=== PATIENT | female | born 1945 | race Caucasian/White ===

== ENCOUNTER 2022-02-22 08:09 | Observation (INO) ==
--- NOTE | 2022-01-26 11:08 | PAT Medication Instructions ---
Medication Instructions Date of Service January 26, 2022 Home Medications calcium 600 mg capsule 600 mg PO QAM cholecalciferol (vitamin D3) 50 mcg (2,000 unit) tablet (Vitamin D3) 50 mcg PO QAM cyanocobalamin (vitamin B-12) 1,000 mcg tablet (Vitamin B-12) 1,000 mcg PO QAM glucosamine-chondroitin 250 mg-200 mg tablet (Osteo Bi-Flex) 2 tab PO QAM ibuprofen 200 mg tablet 200 mg PO QAM PRN levothyroxine 125 mcg tablet 125 mcg PO QAM lorazepam 0.5 mg tablet 0.5 mg PO HS PRN melatonin 5 mg tablet 5 mg PO HS polyethylene glycol 3350 17 gram/dose oral powder (Miralax) 17 g PO DAILY PRN ASK your surgeon for instructions ibuprofen 200 mg tablet 200 mg PO QAM PRN STOP taking 2 weeks before surgery glucosamine-chondroitin 250 mg-200 mg tablet (Osteo Bi-Flex) 2 tab PO QAM DO NOT take the morning of surgery calcium 600 mg capsule 600 mg PO QAM cholecalciferol (vitamin D3) 50 mcg (2,000 unit) tablet (Vitamin D3) 50 mcg PO QAM cyanocobalamin (vitamin B-12) 1,000 mcg tablet (Vitamin B-12) 1,000 mcg PO QAM polyethylene glycol 3350 17 gram/dose oral powder (Miralax) 17 g PO DAILY PRN Take morning of surgery With a small sip of water, OTHERWISE NOTHING TO EAT OR DRINK AFTER MIDNIGHT: levothyroxine 125 mcg tablet 125 mcg PO QAM Take evening before surgery lorazepam 0.5 mg tablet 0.5 mg PO HS PRN(if needed) melatonin 5 mg tablet 5 mg PO HS Other Notes If you have any questions please call us at [phone] or [phone] or [phone] or [phone]
--- NOTE | 2022-01-27 14:37 | Anesthesiology Consultation ---
Date of Service January 27, 2022 Assessment & Plan (1) Encounter for pre-operative examination: - COVID screening: Per assessment on 01/27/2022: Travel screen negative, no known COVID-19 positive contacts or current COVID-19 related symptoms in past 2 weeks. Patient vaccinated. Surgeon arranging preop COVID testing, scheduled 02/18/2022. Awaiting results. Chart Review Chart Review: Acceptable Risk for Surgery and Patient seen in Pre Admission Testing Teaching & Discussion Pre-Anesthesia Teaching/Discussion Notes: Instructed NPO after midnight before surgery, except medications with 15 cc of water. Medication instructions provided according to the PAT guidelines. History Surgery Operation Date: 02/22/22 07:00 Proposed Procedures p Right Total Knee Arthroplasty - Brian Maya, Height/Weight Height: 5 ft 6 in Weight: 66.2 kg Allergies Allergy/AdvReac Type Severity Reaction Status Date / Time No Known Allergies Allergy Unverified 01/25/22 08:18 Medications Home Medications Medication Instructions Recorded Confirmed Last Taken calcium 600 mg capsule 600 mg PO QAM 01/25/22 01/25/22 Unknown cholecalciferol (vitamin D3) 50 50 mcg PO QAM 01/25/22 01/25/22 Unknown mcg (2,000 unit) tablet (Vitamin D3) cyanocobalamin (vitamin B-12) 1,000 mcg PO QAM 01/25/22 01/25/22 Unknown 1,000 mcg tablet (Vitamin B-12) glucosamine-chondroitin 250 mg-200 2 tab PO QAM 01/25/22 01/25/22 Unknown mg tablet (Osteo Bi-Flex) ibuprofen 200 mg tablet 200 mg PO QAM PRN 01/25/22 01/25/22 Unknown levothyroxine 125 mcg tablet 125 mcg PO QAM 01/25/22 01/25/22 Unknown lorazepam 0.5 mg tablet 0.5 mg PO HS PRN 01/25/22 01/25/22 Unknown melatonin 5 mg tablet 5 mg PO HS 01/25/22 01/25/22 Unknown polyethylene glycol 3350 17 17 g PO DAILY PRN 01/25/22 01/25/22 Unknown gram/dose oral powder (Miralax) 3-in-1 Commode #1 ea 01/27/22 01/27/22 Unknown diclofenac sodium 1 % topical gel 2 g TOPICAL QID 01/27/22 01/27/22 Unknown Past Medical History Medical History (Updated 01/27/22 @ 15:04 by Daksha Schwartz PA-C) Cervical stenosis of spinal canal Hypothyroidism Leg ulcer, left hx -- ~2014. wears compression stockings daily. Osteoarthritis of knees, bilateral Presence of pessary Prolapse of bladder Patient denies h/o stroke, seizures, heart attack, heart failure, DM, HTN, blood clots or blood transfusions. Exercise / Class Metabolic Activity II 4-5 Yardwork/Stairs/Walk up hill (denies CP or SOB with 1 FOS) Past Family History Family History Other No family history of adverse response to anesthesia Past Surgical History Surgical History H/O tubal ligation History of colonoscopy History of esophagogastroduodenoscopy (EGD) S/p bilateral carpal tunnel release S/P cervical spinal fusion C3-C6 discectomy and fusion. Full ROM. (March 2016 Dr Packer [facility]) S/P sclerotherapy of varicose veins Past Anesthesia History No Hx of Anesthesia Complications and No Family Hx of Anesthesia Complications History of PONV No Hx of PONV and No Hx of Motion Sickness Social History Smoking Status: Never smoker Do You Dip or Chew Tobacco: No Hx Alcohol Use: No Hx Substance Use: No substance use type: does not use Review of Systems Patient denies chest pain, shortness of breath, dyspnea on exertion, snoring, witnessed apneas, reflux, fever, chills, cough, wheezing, or palpitations. Physical Exam Vital Signs Vitals BP 134/75 P 69 TEMP 98.3 SP02 99% on RA RESP 17 Physical Limited cervical extension range of motion without pain TMD 3.5 finger breaths Mallampati Score 3 Dentition: intact, bridge right upper side, two lower crowns sides bilat, two partials-upper and lower; denies chipped or loose teeth Lungs: normal respiratory effort. Clear throughout to auscultation, no adventitious breath sounds Cardiac: regular rate and rhythm, no murmurs noted Carotid arteries: negative bruit bilat Lab Results Anesthesia Preop Results Results Anesthesia Widget: WBC 6.23 K/uL (4.8-10.8) 05/11/22 Hgb 12.7 g/dL (12.0-16.0) 01/27/22 Hct 38.5 % (37-47) 01/27/22 Plt 289 K/uL (130-400) 01/27/22 Na 132 mmol/L (136-145) L 01/27/22 K 4.5 mmol/L (3.5-5.1) 01/27/22 Cl 99 mmol/L (98-107) 01/27/22 CO2 28 mmol/L (21-32) 01/27/22 BUN 15 mg/dl (6-23) 01/27/22 Creat 0.62 mg/dl (0.6-1.2) 01/27/22 Glucose Level 95 mg/dl (70-99(Fasting)) 01/27/22 PT 10.4 Seconds (9.0-12.0) 01/27/22 PTT 28.0 Seconds (21.0-31.0) 01/27/22 INR 1.0 (0.9-1.1) 01/27/22 Blood Type O Negative 01/27/22 Antibody Screen NEGATIVE 01/27/22 Testing Electrocardiogram Date: 07/13/21 NSR with sinus arrhythmia, rate 67 bpm Chest X-Ray Date: 01/27/22 The lungs are clear. Cardiac silhouette is normal in size. No pleural effusions. No pneumothorax. IMPRESSION: No acute process.
[~2022-02-22 08:09] MED LIST: ACETAMINOPHEN 500 MG TAB PO SCH; BUPIVACAINE 0.25% 30 ML VIAL ONE; BUPIVACAINE 0.5 % 5 MG/1 ML PF 10ML VIAL ONE; FAMOTIDINE 20 MG TAB PO SCH; GABAPENTIN 300 MG CAP PO SCH; Ketorolac (*for OR use only*) 30 MG, dexAMETHasone 4 MG, KETAMINE HCL (**OR use only) 1... INFIL SCH; LR 500ML BOLUS, THEN 15ML/HR IV SCH; LR 60ML/HR IV SCH; TRANEXAMIC ACID 1,000 MG **IV Intra-op IV SCH; TRANEXAMIC ACID 1,000 MG **IV Pre-op IV SCH; ceFAZolin 1000MG 1,000 MG/7.5 ML SYR IV SCH; dexAMETHasone 4 MG TAB PO SCH
--- NOTE | 2022-02-22 08:12 | History & Physical Bridge Note ---
Date of Service February 22, 2022 History & Physical Bridge Note I have examined the patient, reviewed the History & Physical and in the interval since the performance of the History & Physical I have noted the following changes of clinical significance: no changes noted
[2022-02-22] MEDS ORDERED: MIDAZOLAM HCL 1 MG/ML 2ML VIAL ONE (09:28)
[2022-02-22] MEDS ORDERED: ATROPINE SULFATE 0.1 MG/ML 10ML SYR IV PRN (09:53)
[2022-02-22] MEDS ORDERED: ePHEDrine sulfate 50 MG/ML AMP IV PRN (09:53)
[2022-02-22] MEDS ORDERED: fentaNYL citrate 100 MCG/2 ML VIAL IV PRN (09:53)
[2022-02-22] MEDS ORDERED: ONDANSETRON INJ 2 MG/ML 2 ML VIAL IV PRN ×2 (09:53→13:56)
[2022-02-22] MEDS ORDERED: ORTHO JOINT ANESTHETIC ONE (10:21)
[2022-02-22] MEDS ORDERED: PROPOFOL IV EMULSION 10 MG/ML 20 ML VIAL IV ONE (11:03)
[2022-02-22] MEDS ORDERED: ONDANSETRON INJ 2 MG/ML 2 ML VIAL ONE (11:03)
[2022-02-22] MEDS ORDERED: LIDOCAINE 2% 2 ML VIAL/AMP(20MG/ML) INFIL ONE (11:03)
[2022-02-22] MEDS ORDERED: DEXAMETHASONE SOD INJ 4 MG/ML VIAL ONE (11:03)
--- NOTE | 2022-02-22 11:59 | Operative Report ---
PG Post Operative Report Pre & Post Diagnosis Operation Date: 02/22/22 10:40 Pre-Op Diagnosis: Right Knee Osteoarthritis Post-Op Diagnosis: Right Knee Osteoarthritis I identified the patient and participated in the time-out.: Yes Procedure Operation Date: 02/22/22 10:40 Actual Procedures p Right Total Knee Arthroplasty, Cemented(Right) - Brian Maya DO Surgeon Brian Maya, Bankruptcy Judge Brian Switf PAC Estimated Blood Loss 20 Findings Consistent with Post-Op Diagnosis Specimens Right femoral and tibial bone Complications none Disposition Disposition: Recovery Room Indications Aishwarya is a pleasant 76-year-old female who is been dealing with chronic increasing right knee pain. X-rays and clinical examination were diagnostic for advanced arthritis of the right knee. After failing conservative treatment, she elected to proceed with a right total knee arthroplasty. Description of Procedure Implants used: I used a Joselyn Persona total knee arthroplasty system with a size 6 standard femur, E tibia, 31 oval patella, and a size 13 medial congruent polyethylene bearing. All components were cemented in place with Biomet cement. Aishwarya arrived [facility] for the above procedure. She was seen in the preoperative holding area and the operative extremity was identified and signed. She was given a preoperative antibiotic, TXA, a spinal anesthetic and an adductor nerve block. She was taken back to the operating room and laid on the table in supine position. She was given basic sedation. The operative knee was then prepped and draped in sterile fashion. A timeout was done, and the patient and the operative extremity was properly identified. A midline incision was made directly over the patella. Dissection was taken down to the extensor mechanism. A subvastus arthrotomy was used. The medial retinaculum was released and the fat pad was mostly excised. The knee was flexed and the ACL, PCL, and meniscus were removed. A drill was sent down the center of the femoral canal followed by an intramedullary mindy. Off that mindy a distal femoral cutting block was placed. 9 mm was resected off the distal femur at 5 of valgus. A posterior referencing AP sizing guide was then placed on the distal femur. The femur measured to be a size 6. 2 drill holes were placed in 3 of external rotation. A 4-in-1 cutting block was then impacted into place. Anterior, posterior, and chamfer cuts were then made. The proximal tibia was then exposed. An external tibial alignment guide was placed. A tibial cut guide was then anchored in place and the proximal tibia was then resected. The posterior aspect of the knee was then opened up and any additional meniscus fragments and osteophytes were removed. The tibia measured to be a size E. The tibial plate was then placed in the appropriate rotation and the tibia was drilled and punched. Trial components were then placed. I used a size 13 medial congruent polyethylene insert. The knee was brought through a full range of motion and felt to be stable. The peg holes for the femoral component were then drilled. The patella was then everted and 9 mm was resected off the posterior aspect of the patella. The patella measured to be a size 31 oval. 3 peg holes were then drilled. A trial patella was placed. The knee was once again brought through a full range of motion and felt to be stable. Trial components were then removed. The surrounding soft tissues were injected with 100 cc of an orthopedic pain control cocktail. All components were then cemented into place with Biomet cement. The final polyethylene insert was then snapped into place. Once cement was dry the tourniquet was deflated. Hemostasis was obtained. A dilute betadyne lavage was then done for 3 minutes. The joint was then irrigated with normal saline solution. The subvastus arthrotomy was then closed with #1 Vicryl suture. The skin was closed with 2-0 Vicryl, 3-0V lock suture, and yasmine. A soft compressive dressing was placed. She was then transferred to a hospital bed and taken to the postanesthesia care unit in stable condition. She tolerated the procedure well. Brian Swift PA-C, was present for the entire procedure. He was critical for patient positioning, prepping, draping, retraction exposure, wound closure and application of sterile dressing. I attest to the content of the Intraoperative Record and any orders documented therein. Any exceptions are noted below.
--- NOTE | 2022-02-22 12:47 | XRay Report ---
XR knee RT 1 or 2V routine HISTORY: 76 years-old Female Surgical Post Op right knee total joint arthroplasty COMPARISON: Knee radiographs 03/18/2021 TECHNIQUE: 2 views of the right knee FINDINGS: Right knee total joint arthroplasty with patellar resurfacing. Anterior midline skin yasmine are note d along with expected postoperative soft tissue swelling and deep tissue air. No acute fracture or un expected opaque foreign body. IMPRESSION: Right knee total joint arthroplasty with expected postoperative changes. ACT 112: Negative or not required by law. The above report was generated using voice recognition software. It may contain grammatical, syntax o r spelling errors. Electronically signed by: Arnaud Gee M.D. 02/22/2022 12:46 PM
[2022-02-22] MEDS ORDERED: bisacodyL 10 MG SUPP PR PRN (13:56)
[2022-02-22] MEDS ORDERED: METOCLOPRAMIDE HCL INJ 5 MG/ML 2 ML VIAL IV PRN (13:56)
[2022-02-22] MEDS ORDERED: SODIUM CHLORIDE 0.9% 1000ML 1,000 ML IV SCH (13:56)
[2022-02-22] MEDS ORDERED: HYDROmorphone INJ 0.5 MG/0.5 ML SYR IV PRN (13:56)
[2022-02-22] MEDS ORDERED: NALOXONE HCL 0.4 MG/1 ML VIAL/CARP IV PRN (13:56)
[2022-02-22] MEDS ORDERED: MAGNESIUM HYDROXIDE SUSP 30 ML UDC PO PRN (13:56)
[2022-02-22] MEDS ORDERED: LORazepam 0.5 MG TAB PO PRN (13:56)
[2022-02-22] MEDS: DICLOFENAC SOD 1% GEL 100 GM TUBE EXT SCH ×3 (14:44→20:59)
[2022-02-22] MEDS: ACETAMINOPHEN 500 MG TAB PO SCH ×2 (14:46→20:59)
--- NOTE | 2022-02-22 15:00 | Anesthesiology Progress Note ---
Date of Service February 22, 2022 Anesthesia Post Procedure Vital Signs Vital Signs: Temp Pulse Pulse Resp BP Pulse Ox 02/22/22 14:50 76 16 139/77 97 02/22/22 14:20 76 16 131/76 100 02/22/22 13:50 36.5 C 62 16 117/63 100 02/22/22 13:30 59 L 15 123/66 98 02/22/22 13:20 36.6 C 62 14 128/58 L 97 02/22/22 13:10 60 14 138/59 L 100 02/22/22 13:00 53 L 12 116/66 100 02/22/22 12:50 60 13 123/64 99 02/22/22 12:40 59 L 11 L 136/65 100 02/22/22 12:30 64 14 132/70 97 02/22/22 12:20 70 11 L 127/68 97 02/22/22 12:10 65 17 132/59 L 100 02/22/22 12:04 36.4 C L 64 16 105/56 L 97 02/22/22 08:38 36.4 C L 65 18 178/81 H 98 Transfer of Care Handoff Completed per policy Notes Mental Status: alert / awake / arousable and participated in evaluation Patient Amnestic to Procedure: Yes Nausea / Vomiting: adequately controlled Pain: adequately controlled Airway Patency, RR, SpO2: stable & adequate BP & HR: stable & adequate Hydration State: stable & adequate Neuraxial Anesthesia: was administered and sensory block is resolving Anesthetic Complications: no major complications apparent and Pt Satisfied with anesthetic care
[2022-02-22] MEDS: KETOROLAC TROMETHAMINE 15 MG/ML VIAL IV SCH ×2 (16:41→21:00)
[2022-02-22] MEDS: ceFAZolin 2000MG 2,000 MG/15 ML SYR IV SCH (17:35)
[2022-02-22] MEDS: oxyCODONE HCL IR 5 MG TAB (IMMEDIATE RELEASE) PO PRN ×3 (18:18→23:19)
[2022-02-22] MEDS: DOCUSATE SODIUM 100 MG CAP PO SCH (20:59)
[2022-02-22] MEDS: SENNA 8.6 MG TAB PO SCH (20:59)
[2022-02-22] MEDS: ASPIRIN 81 MG ECTAB PO SCH (20:59)
[2022-02-22] MEDS: MELATONIN 3 MG TAB PO SCH (23:19)
[2022-02-23] MEDS: ceFAZolin 2000MG 2,000 MG/15 ML SYR IV SCH (02:23)
[2022-02-23] MEDS: KETOROLAC TROMETHAMINE 15 MG/ML VIAL IV SCH ×4 (02:23→20:05)
[2022-02-23] MEDS: ACETAMINOPHEN 500 MG TAB PO SCH ×3 (06:37→22:18)
--- NOTE | 2022-02-23 07:02 | Orthopedic Progress Note ---
Date of Service February 23, 2022 Assessment & Plan (1) Status post right knee replacement: Overall she is doing very well. She is not any much pain in the right knee. She will be seen by physical therapy today for ambulation and range of motion exercises. She is on aspirin for DVT prophylaxis. She can be discharged home later today. She will follow-up with orthopedics in 2 weeks. Bernarda Neff was seen and examined at bedside this morning. Overall she is doing very well. She is not in too much pain in the right knee. She has been up and ambulating to the bathroom. She did have a small episode last night where she felt a little bit dizzy. Otherwise, she has no complaints. Review of Systems All systems reviewed & are unremarkable except as noted in HPI & below. Physical Exam On physical examination of the right knee, the dressing is clean and dry. Her leg is out full extension. She has active dorsiflexion plantarflexion of her right ankle.. Results & Data Results & Data Laboratory Results . Diagnostic Findings Postoperative x-rays of the right knee show the prosthesis to be in anatomic alignment without any evidence of fracture, desiccation, or loosening. PG Care Time/CCT Total # of Minutes Spent Total Time Spent with Patient: Total time spent is greater than 50% in coordination of care (as documented) at patient's floor/unit and/or counseling patient: Coding Level of Care Code 40164 Post Operative Follow-Up Diagnoses Status post right knee replacement Z96.651
--- NOTE | 2022-02-23 07:03 | Discharge Summary ---
Date of Service February 23, 2022 Principal Diagnosis Same as "Discharge Diagnosis" noted below under Discharge Instructions. Discharge Exam On physical examination of the right knee, the dressing is clean and dry. Her leg is out full extension. She has active dorsiflexion plantarflexion of her right ankle.. Discharge Data Procedures Performed Operation Date: 02/22/22 10:40 Actual Procedures p Right Total Knee Arthroplasty, Cemented(Right) - Brian Maya DO Ordered Studies 02/22/22 05:00 US - OR guided needle placemen Routine Hospital Course (1) Status post right knee replacement: On February 22, 2022 Aishwarya arrived at [facility] and underwent a right knee replacement without complication. She had a spinal anesthetic and a right interscalene nerve block. Postoperatively she was started on aspirin for DVT prophylaxis and transferred to the general orthopedic floors. Her hospital course was uneventful. On postop day #1, her vital signs were stable and her pain was well controlled. She was able to participate well with physical therapy doing ambulation and range of motion exercises. She was then discharged home. She will follow-up with orthopedics in 2 weeks. PG Care Time/CCT Total # of Minutes Spent Total Time Spent with Patient: Total time spent is greater than 50% in coordination of care (as documented) at patient's floor/unit and/or counseling patient: Discharge Plan Discharge Items Patient Disposition: Home - Home Health Services Reason For Visit: DJD Knee Right Discharge Diagnosis: Right knee replacement Activity: As commented below Non-emergency contact: Surgeon Call non-emergency contact if: your wound has increased redness and your wound has increased drainage Follow-up/Referrals: Alayna Geiger DO [Primary Care Provider] - Diet: Regular Addtl Attending Provider Instructions: Activity and Therapy Recommendations: * If you are using [facility] then therapy will be provided at your home until they feel you have accomplished all of your goals. * If you are using [facility] then Physical Therapy will be provided until they feel you are ready to start Outpatient Physical Therapy. * If you are not using home therapy then Outpatient Physical Therapy should start about 3-5 days from your day of surgery. Therapy will last about 6-10 weeks * It is important not to put a pillow under your knee when you are relaxing or sleeping. It is just as important to make sure you are getting your knee perfectly straight as it is to regain your knee bend. * You were shown a series of exercises in the hospital. Do these exercises three times each day including the exercises you were shown in physical therapy. * Get up and walk several times each day. For the first four weeks, try not to stand or walk for more than one hour at a time. If you do stand or walk for more than one hour, you will not hurt anything, but your leg will likely swell. * As you feel comfortable, you may change from the walker or crutches to a cane and then to independent walking. Medications: * Narcotic You will likely be sent home from the hospital with a prescription for the narcotic pain medication that worked best throughout your stay. * Aspirin Most patients will be required to take Aspirin 81mg twice a day for 6 weeks after surgery. This is obtained [id number] and a prescription is not necessary. * Other medications may be prescribed for specific circumstances. If you have any questions, please call the office at . * Resume previous home medications unless otherwise instructed TEDs/Elastic Stockings: The white elastic stockings help limit swelling and prevent blood clots from forming in your legs.~ The more you wear them, the more they work. Wear them for six weeks. Dressing Care: The dressing can be changed after physical therapy on postop day #1. Daily dry dressing changes for a few days, especially if the incision is still draining some. If the incision is not draining then you may leave the yasmine open to air. If there is a little bit of drainage or if the yasmine are getting stuck on your clothing then cover the incision with a dry dressing. The yasmine will be removed at your 2 week follow-up appointment. Showering: You may shower 5 days from the day of surgery as long as the incision is no longer draining. You may shower with the yasmine exposed. Let soapy water run over the yasmine and pat them dry. Do not scrub or soak the incision. Things To Watch For: * Drainage from the incision site that occurs more than one week after your surgery. * Increased redness at the incision site. * Fever above 102 degrees Fahrenheit. * Unusual chest pain or shortness of breath. * Call [facility] at with any of the above problems Follow-Up Visit: Follow-up with Dr. Maya's PA (Brian Swift) 2-3 weeks after your day of surgery. He will remove your yasmine and answer any questions. If you have any additional questions or concerns, Dr Maya is usually in the office at the same time and will be available An appointment was probably scheduled when you signed-up for surgery in the office. If you have any questions call Office Instructions: More detailed instructions as well as Frequently Asked Questions were provided in a folder by our office when you signed-up for surgery. Please review these instructions when you get home. If you have any further questions or concerns, please feel free to call the office at [phone] Pending Studies at Discharge: No Stand-Alone Forms: [facility] Medications and DC Order Prescriptions: New oxycodone-acetaminophen 5-325 mg tablet 1 tab PO Q6H PRN (Reason: pain) Qty: 30 RF: 0 aspirin 81 mg Tablet,Delayed Release (Dr/Ec) 81 mg PO BID 42 Days Qty: 84 RF: 0 Continued diclofenac sodium 1 % gel 2 g topical QID RF: 0 (DME) 3-in-1 Commode Misc See Rx Instructions .MEDSUPPLY Qty: 1 RF: 0 calcium 600 mg Capsule 600 mg PO QAM RF: 0 cyanocobalamin (vitamin B-12) [Vitamin B-12] 1,000 mcg Tablet 1,000 mcg PO QAM RF: 0 lorazepam 0.5 mg Tablet 0.5 mg PO HS PRN (Reason: Anxiety) RF: 0 levothyroxine 125 mcg Tablet 125 mcg PO QAM RF: 0 ibuprofen 200 mg Tablet 200 mg PO QAM PRN (Reason: Pain) RF: 0 polyethylene glycol 3350 [Miralax] 17 gram/dose Powder 17 g PO DAILY PRN (Reason: Constipation) RF: 0 glucosamine-chondroitin [Osteo Bi-Flex] 250-200 mg Tablet 2 tab PO QAM RF: 0 cholecalciferol (vitamin D3) [Vitamin D3] 50 mcg (2,000 unit) Tablet 50 mcg PO QAM RF: 0 melatonin 5 mg Tablet 5 mg PO HS RF: 0 Discharge Orders: Discharge Order (Routine); Ordered 02/23/22 Ordered By: Brian Maya Admission Data Admit Date/Time: 02/22/22 12:05 Attending Provider: Brian Maya Admit Provider: Brian Maya Primary Care Provider: Alayna Geiger
[2022-02-23] MEDS: LEVOTHYROXINE SODIUM 125 MCG TABLET PO SCH (07:36)
[2022-02-23] MEDS ORDERED: dexAMETHasone 4 MG TAB PO SCH (08:00)
[2022-02-23] MEDS: oxyCODONE HCL IR 5 MG TAB (IMMEDIATE RELEASE) PO PRN (08:29)
[2022-02-23] MEDS: DOCUSATE SODIUM 100 MG CAP PO SCH ×2 (08:30→20:06)
[2022-02-23] MEDS: DICLOFENAC SOD 1% GEL 100 GM TUBE EXT SCH ×4 (08:31→20:06)
[2022-02-23] MEDS: MULTIVITAMIN TAB PO SCH (08:31)
[2022-02-23] MEDS: ASPIRIN 81 MG ECTAB PO SCH ×2 (08:31→20:05)
[2022-02-23] MEDS: SENNA 8.6 MG TAB PO SCH (20:06)
[2022-02-23] MEDS: MELATONIN 3 MG TAB PO SCH (22:18)
[2022-02-24] MEDS: KETOROLAC TROMETHAMINE 15 MG/ML VIAL IV SCH ×2 (02:45→07:39)
[2022-02-24] MEDS: ACETAMINOPHEN 500 MG TAB PO SCH (05:35)
[2022-02-24] MEDS: LEVOTHYROXINE SODIUM 125 MCG TABLET PO SCH (05:35)
--- NOTE | 2022-02-24 06:23 | Orthopedic Progress Note ---
Date of Service February 24, 2022 Assessment & Plan (1) Status post right knee replacement: Overall she is doing much better. She is not having much pain in the right knee. She will be seen by physical therapy again today for ambulation and range of motion exercises. We will discontinue her narcotics. She feels safe going home with just taking ibuprofen and Tylenol. She can be discharged home later today. She will follow with orthopedics in 2 weeks. Bernarda Neff was seen and examined at bedside this morning. Overall she is feeling better today. She feels it was with her narcotic pain medications that were causing her to be dizzy. She is not having much pain in the knee. She was a little dizzy when she was up with therapy yesterday. She feels much better today. Review of Systems All systems reviewed & are unremarkable except as noted in HPI & below. Physical Exam On physical examination of the right knee, the dressing is clean and dry. Her leg is out full extension. She has active dorsiflexion plantarflexion of the right ankle.. Results & Data Results & Data Laboratory Results . Diagnostic Findings . PG Care Time/CCT Total # of Minutes Spent Total Time Spent with Patient: Total time spent is greater than 50% in coordination of care (as documented) at patient's floor/unit and/or counseling patient: Coding Level of Care Code 62438 Post Operative Follow-Up Diagnoses Status post right knee replacement Z96.651
[2022-02-24] MEDS: MULTIVITAMIN TAB PO SCH (07:38)
[2022-02-24] MEDS: DOCUSATE SODIUM 100 MG CAP PO SCH (07:38)
[2022-02-24] MEDS: DICLOFENAC SOD 1% GEL 100 GM TUBE EXT SCH (07:39)
[2022-02-24] MEDS: ASPIRIN 81 MG ECTAB PO SCH (07:39)
== END 2022-02-24 13:45 | disposition home health service (06) ==
LOC: ASU 08:09 → 3E 08:09

== ENCOUNTER 2022-06-11 07:39 | Observation (INO) ==
--- NOTE | 2022-06-03 10:06 | Anesthesiology Consultation ---
Date of Service June 03, 2022 Assessment & Plan (1) Encounter for pre-operative examination: - s/p R TKA 02/22/22: SAB at L4-L5 + PNB. - COVID screening: Per reel slitter on 06/03/2022: Travel screen negative, no known COVID-19 positive contacts or current COVID-19 related symptoms in past 2 weeks. Pt vaccinated. To surgeon's discretion if preop COVID testing needed. Chart Review Chart Review: Acceptable Risk for Surgery and Patient NOT seen in Pre Admission Testing History Surgery Operation Date: 06/11/22 10:25 Proposed Procedures p Left Total Knee Arthroplasty - Brian Maya, DO Height/Weight Height: 5 ft 5 in Weight: 63.957 kg Allergies Allergy/AdvReac Type Severity Reaction Status Date / Time No Known Allergies Allergy Verified 06/03/22 08:25 Medications Home Medications Medication Instructions Recorded Confirmed Last Taken calcium 600 mg capsule 600 mg PO QAM 01/25/22 06/03/22 02/21/22 07:00 cholecalciferol (vitamin D3) 50 50 mcg PO QAM 01/25/22 06/03/22 02/21/22 07:00 mcg (2,000 unit) tablet (Vitamin D3) cyanocobalamin (vitamin B-12) 1,000 mcg PO QAM 01/25/22 06/03/22 02/21/22 07:00 1,000 mcg tablet (Vitamin B-12) glucosamine-chondroitin 250 mg-200 2 tab PO QAM 01/25/22 06/03/22 02/15/22 07:00 mg tablet (Osteo Bi-Flex) ibuprofen 200 mg tablet 200 mg PO QAM PRN Pain 01/25/22 06/03/22 02/15/22 07:00 levothyroxine 125 mcg tablet 125 mcg PO QAM 01/25/22 06/03/22 02/22/22 06:00 lorazepam 0.5 mg tablet 0.5 mg PO HS PRN Anxiety 01/25/22 06/03/22 02/21/22 23:00 melatonin 5 mg tablet 5 mg PO HS 01/25/22 06/03/22 02/21/22 23:00 polyethylene glycol 3350 17 17 g PO DAILY PRN Constipation 01/25/22 06/03/22 02/20/22 23:00 gram/dose oral powder (Miralax) 3-in-1 Commode #1 ea 01/27/22 02/22/22 Unknown diclofenac sodium 1 % topical gel 2 g topical QID 01/27/22 06/03/22 02/21/22 07:00 tramadol 50 mg tablet 50 mg PO Q6H PRN pain #30 tabs 03/19/22 06/03/22 Unknown Past Medical History Medical History Cervical stenosis of spinal canal Hypothyroidism Leg ulcer, left hx -- ~2014. wears compression stockings daily. Presence of pessary Prolapse of bladder Past Family History Family History (Updated 06/03/22 @ 08:30 by Viky Gaona RN) Other No significant family history Past Surgical History Surgical History (Updated 06/03/22 @ 10:02 by Daksha Schwartz PA-C) Family history of reaction to anesthesia SISTER>HEART PALPITATION WITH ANESTHESIA H/O tubal ligation History of colonoscopy History of esophagogastroduodenoscopy (EGD) History of tooth extraction History of total knee replacement RT 02/22/22: SAB at L4-L5 + PNB. S/p bilateral carpal tunnel release S/P cervical spinal fusion C3-C6 discectomy and fusion. Full ROM. (March 2016 Dr Packer [facility]) S/P sclerotherapy of varicose veins Social History Smoking Status: Never smoker Hx Alcohol Use: No substance use type: does not use Lab Results Anesthesia Preop Results Results Anesthesia Widget: WBC 6.78 K/ul (4.8-10.8) 05/25/22 Hgb 12.1 g/dl (12.0-16.0) 05/25/22 Hct 37.9 % (34.1-44.9) 05/25/22 Plt 293 K/uL (130-400) 05/25/22 Na 131 mmol/L (136-145) L 05/25/22 K 4.4 mmol/L (3.5-5.1) 05/25/22 Cl 98 mmol/L (98-107) 05/25/22 CO2 28 mmol/L (21-32) 05/25/22 BUN 14 mg/dl (6-23) 05/25/22 Creat 0.57 mg/dl (0.6-1.2) L 05/25/22 Glucose Level 88 mg/dl (70-99(Fasting)) 05/25/22 PT 10.5 Seconds (9.0-12.0) 05/25/22 PTT 30.8 Seconds (21.0-31.0) 05/25/22 INR 1.0 (0.9-1.1) 05/25/22 Blood Type O Negative 05/25/22 Antibody Screen NEGATIVE 05/25/22 Testing Electrocardiogram Date: 07/13/21 NSR with sinus arrhythmia, rate 67 bpm Chest X-Ray Date: 01/27/22 The lungs are clear. Cardiac silhouette is normal in size. No pleural effusions. No pneumothorax. IMPRESSION: No acute process.
[~2022-06-11 07:39] MED LIST changes: -BUPIVACAINE 0.25% 30 ML VIAL ONE; -GABAPENTIN 300 MG CAP PO SCH; -Ketorolac (*for OR use only*) 30 MG, dexAMETHasone 4 MG, KETAMINE HCL (**OR use only) 1... INFIL SCH; +ORTHO JOINT MIX INFIL SCH; +ROPIVACAINE 0.5% 5 MG/ML 30 ML VIAL ONE
[2022-06-11] MEDS ORDERED: MIDAZOLAM HCL 1 MG/ML 2ML VIAL ONE (08:21)
[2022-06-11] MEDS: GABAPENTIN 300 MG CAP PO SCH ×2 (08:39→08:46)
--- NOTE | 2022-06-11 09:25 | History & Physical Bridge Note ---
Date of Service June 11, 2022 History & Physical Bridge Note I have examined the patient, reviewed the History & Physical and in the interval since the performance of the History & Physical I have noted the following changes of clinical significance: no changes noted
[2022-06-11] MEDS ORDERED: ePHEDrine sulfate 50 MG/ML AMP IV PRN (09:49)
[2022-06-11] MEDS ORDERED: ONDANSETRON INJ 2 MG/ML 2 ML VIAL IV PRN ×2 (09:49→13:44)
[2022-06-11] MEDS ORDERED: fentaNYL citrate 100 MCG/2 ML VIAL IV PRN (09:49)
[2022-06-11] MEDS ORDERED: ATROPINE SULFATE 0.1 MG/ML 10ML SYR IV PRN (09:49)
[2022-06-11] MEDS ORDERED: ORTHO JOINT ANESTHETIC ONE (09:57)
[2022-06-11] MEDS ORDERED: PROPOFOL IV EMULSION 10 MG/ML 20 ML VIAL IV ONE (10:33)
[2022-06-11] MEDS ORDERED: LIDOCAINE 2% MPF LOCAL 5 ML VIAL INFIL ONE (10:33)
[2022-06-11] MEDS ORDERED: ONDANSETRON INJ 2 MG/ML 2 ML VIAL ONE (10:33)
--- NOTE | 2022-06-11 11:35 | Operative Report ---
PG Post Operative Report Pre & Post Diagnosis Operation Date: 06/11/22 10:15 Pre-Op Diagnosis: Left Knee Degenerative Joint Disease Post-Op Diagnosis: Left Knee Degenerative Joint Disease I identified the patient and participated in the time-out.: Yes Procedure Operation Date: 06/11/22 10:15 Actual Procedures p Left Total Knee Arthroplasty(Left) - Brian Maya DO Surgeon Brian Maya DO Book Store Associate Brian Swift PA-C Estimated Blood Loss 30 Findings Consistent with Post-Op Diagnosis Specimens Left femoral and tibial bone Description of Procedure Implants used: I used a Joselyn Persona total knee arthroplasty system with a size 5 standard femur, E tibia, 28 oval patella, and a size 13 medial congruent polyethylene bearing. All components were cemented in place with Biomet cement. Aishwarya arrived [facility] for the above procedure. She was seen in the preoperative holding area and the operative extremity was identified and signed. She was given a preoperative antibiotic, TXA, a spinal anesthetic and an adductor nerve block. She was taken back to the operating room and laid on the table in supine position. She was given basic sedation. The operative knee was then prepped and draped in sterile fashion. A timeout was done, and the patient and the operative extremity was properly identified. A midline incision was made directly over the patella. Dissection was taken down to the extensor mechanism. A subvastus arthrotomy was used. The medial retinaculum was released and the fat pad was mostly excised. The knee was flexed and the ACL, PCL, and meniscus were removed. A drill was sent down the center of the femoral canal followed by an intramedullary mindy. Off that mindy a distal femoral cutting block was placed. 9 mm was resected off the distal femur at 5 of valgus. A posterior referencing AP sizing guide was then placed on the distal femur. The femur measured to be a size 5. 2 drill holes were placed in 3 of external rotation. A 4-in-1 cutting block was then impacted into place. Anterior, posterior, and chamfer cuts were then made. The proximal tibia was then exposed. An external tibial alignment guide was placed. A tibial cut guide was then anchored in place and the proximal tibia was then resected. The posterior aspect of the knee was then opened up and any additional meniscus fragments and osteophytes were removed. The tibia measured to be a size E. The tibial plate was then placed in the appropriate rotation and the tibia was drilled and punched. Trial components were then placed. I used a size 13 medial congruent polyethylene insert. The knee was brought through a full range of motion and felt to be stable. The peg holes for the femoral component were then drilled. The patella was then everted and 9 mm was resected off the posterior aspect of the patella. The patella measured to be a size 28 oval. 3 peg holes were then drilled. A trial patella was placed. The knee was once again brought through a full range of motion and felt to be stable. Trial components were then removed. The surrounding soft tissues were injected with 100 cc of an orthopedic pain control cocktail. All components were then cemented into place with Biomet cement. The final polyethylene insert was then snapped into place. Once cement was dry the tourniquet was deflated. Hemostasis was obtained. A dilute betadyne lavage was then done for 3 minutes. The joint was then irrigated with normal saline solution. The subvastus arthrotomy was then closed with #1 Vicryl suture. The skin was closed with 2-0 Vicryl, 3-0V lock suture, and yasmine. A soft compressive dressing was placed. She was then transferred to a hospital bed and taken to the postanesthesia care unit in stable condition. She tolerated the procedure well. Brian Swift PA-C, was present for the entire procedure. He was critical for patient positioning, prepping, draping, retraction exposure, wound closure and application of sterile dressing. I attest to the content of the Intraoperative Record and any orders documented therein. Any exceptions are noted below.
--- NOTE | 2022-06-11 13:08 | Anesthesiology Progress Note ---
Date of Service June 11, 2022 Anesthesia Post Procedure Vital Signs Vital Signs: Temp Pulse Pulse Resp BP Pulse Ox O2 Del Method 06/11/22 13:00 60 18 125/62 95 Room Air 06/11/22 12:40 57 L 15 127/60 96 Room Air 06/11/22 12:50 36.4 C L 58 L 17 118/62 97 Room Air 06/11/22 12:30 57 L 15 115/55 L 97 Room Air 06/11/22 12:20 58 L 15 130/50 L 99 Oxymask 06/11/22 12:10 59 L 16 117/69 100 Oxymask 06/11/22 12:00 36.0 C L 67 16 126/59 L 96 Oxymask 06/11/22 08:18 36.4 C L 56 L 20 134/79 97 Room Air O2 Flow Rate 06/11/22 13:00 06/11/22 12:40 06/11/22 12:50 06/11/22 12:30 06/11/22 12:20 4 06/11/22 12:10 4 06/11/22 12:00 8 06/11/22 08:18 Transfer of Care Handoff Completed per policy Notes Mental Status: alert / awake / arousable and participated in evaluation Patient Amnestic to Procedure: Yes Nausea / Vomiting: adequately controlled Pain: adequately controlled Airway Patency, RR, SpO2: stable & adequate BP & HR: stable & adequate Hydration State: stable & adequate Neuraxial Anesthesia: was administered and sensory block is resolving Anesthetic Complications: no major complications apparent and Pt Satisfied with anesthetic care
--- NOTE | 2022-06-11 13:16 | XRay Report ---
LEFT KNEE 2 VIEWS History: Left total knee arthroplasty. Degenerative arthritis. Postop. FINDINGS: The patient is status post a left total knee arthroplasty. The hardware is intact. No fract ure or dislocation. Skin yasmine are in place. IMPRESSION: Left total knee arthroplasty. No evidence for hardware complication. ACT 112: Negative or not required by law. Electronically signed by: Maurice Henriquez M.D. 06/11/2022 1:15 PM
[2022-06-11] MEDS ORDERED: LORazepam 0.5 MG TAB PO PRN (13:44)
[2022-06-11] MEDS ORDERED: MAGNESIUM HYDROXIDE SUSP 30 ML UDC PO PRN (13:44)
[2022-06-11] MEDS ORDERED: NALOXONE HCL 0.4 MG/1 ML VIAL/CARP IV PRN (13:44)
[2022-06-11] MEDS ORDERED: traMADol HCL 50 MG TABLET PO PRN (13:44)
[2022-06-11] MEDS ORDERED: SODIUM CHLORIDE 0.9% 1000ML 1,000 ML IV SCH (13:44)
[2022-06-11] MEDS ORDERED: METOCLOPRAMIDE HCL INJ 5 MG/ML 2 ML VIAL IV PRN (13:44)
[2022-06-11] MEDS ORDERED: bisacodyL 10 MG SUPP PR PRN (13:44)
[2022-06-11] MEDS: ACETAMINOPHEN 500 MG TAB PO SCH ×2 (14:37→21:45)
[2022-06-11] MEDS: KETOROLAC TROMETHAMINE 15 MG/ML VIAL IV SCH ×2 (14:38→20:41)
[2022-06-11] MEDS: ceFAZolin 2000MG 2,000 MG/15 ML SYR IV SCH (17:50)
[2022-06-11] MEDS: DOCUSATE SODIUM 100 MG CAP PO SCH (20:43)
[2022-06-11] MEDS: ASPIRIN 81 MG ECTAB PO SCH (20:43)
[2022-06-11] MEDS ORDERED: SENNA 8.6 MG TAB PO SCH (21:00)
[2022-06-12] MEDS: ceFAZolin 2000MG 2,000 MG/15 ML SYR IV SCH (01:52)
[2022-06-12] MEDS: KETOROLAC TROMETHAMINE 15 MG/ML VIAL IV SCH ×3 (01:53→13:47)
[2022-06-12] MEDS: ACETAMINOPHEN 500 MG TAB PO SCH ×2 (06:04→13:48)
[2022-06-12] MEDS ORDERED: LEVOTHYROXINE SODIUM 125 MCG TABLET PO SCH (06:30)
--- NOTE | 2022-06-12 07:29 | Orthopedic Progress Note ---
Date of Service June 12, 2022 Assessment & Plan (1) Status post left knee replacement: Overall she is doing very well. She is having much pain in the left knee. She will be seen by physical therapy today for ambulation and range of motion exercises. She is on aspirin for DVT prophylaxis. She can be discharged home later today. She will follow-up orthopedics in 2 weeks. Subjective Aishwarya was seen and examined at bedside this morning. Overall she is doing very well. She is having much pain in the left knee. She has been up and ambulating to the bathroom. She has no complaints.. Review of Systems All systems reviewed & are unremarkable except as noted in HPI & below. Physical Exam On physical examination of the left knee, the dressing is clean and dry. She has active dorsiflexion plantarflexion of her left ankle. Sensation is intact throughout.. Results & Data Results & Data Laboratory Results . Diagnostic Findings Postoperative x-rays of the left knee show the prosthesis to be in anatomic alignment without any evidence of fracture, desiccation, or loosening. PG Care Time/CCT Total # of Minutes Spent Total Time Spent with Patient: Total time spent is greater than 50% in coordination of care (as documented) at patient's floor/unit and/or counseling patient: Coding Level of Care Code 73888 Post Operative Follow-Up Diagnoses Status post left knee replacement Z96.652
--- NOTE | 2022-06-12 07:30 | Discharge Summary ---
Date of Service June 12, 2022 Principal Diagnosis Same as "Discharge Diagnosis" noted below under Discharge Instructions. Discharge Exam On physical examination of the left knee, the dressing is clean and dry. She has active dorsiflexion plantarflexion of her left ankle. Sensation is intact throughout.. Discharge Data Procedures Performed Operation Date: 06/11/22 10:15 Actual Procedures p Left Total Knee Arthroplasty(Left) - Brian Maya DO Ordered Studies 06/11/22 05:00 US - OR guided needle placemen Routine Hospital Course (1) Status post left knee replacement: On June 11, 2022 Aishwarya arrived at [facility] and underwent a left knee replacement without complication. She had a spinal anesthetic. Postoperatively she was started on aspirin for DVT prophylaxis and transferred to the general orthopedic floors. Her hospital course was uneventful. On postop day #1, her vital signs were stable and her pain was well controlled. She was able to participate well with physical therapy doing ambulation and range of motion exercises. She was then discharged home. She will follow-up with orthopedics in 2 weeks. PG Care Time/CCT Total # of Minutes Spent Total Time Spent with Patient: Total time spent is greater than 50% in coordination of care (as documented) at patient's floor/unit and/or counseling patient: Discharge Plan Discharge Items Patient Disposition: Home - Home Health Services Reason For Visit: Left Knee Degenerative Joint Disease Discharge Diagnosis: Left knee replacement Activity: Per Instructions section Non-emergency contact: Surgeon Call non-emergency contact if: your wound has increased redness and your wound has increased drainage Follow-up/Referrals: Alayna Geiger DO [Primary Care Provider] - Diet: Regular Addtl Attending Provider Instructions: Activity and Therapy Recommendations: * If you are using [facility] then therapy will be provided at your home until they feel you have accomplished all of your goals. * If you are using [facility] then Physical Therapy will be provided until they feel you are ready to start Outpatient Physical Therapy. * If you are not using home therapy then Outpatient Physical Therapy should start about 3-5 days from your day of surgery. Therapy will last about 6-10 weeks * It is important not to put a pillow under your knee when you are relaxing or sleeping. It is just as important to make sure you are getting your knee perfectly straight as it is to regain your knee bend. * You were shown a series of exercises in the hospital. Do these exercises three times each day including the exercises you were shown in physical therapy. * Get up and walk several times each day. For the first four weeks, try not to stand or walk for more than one hour at a time. If you do stand or walk for more than one hour, you will not hurt anything, but your leg will likely swell. * As you feel comfortable, you may change from the walker or crutches to a cane and then to independent walking. Medications: * Narcotic You will likely be sent home from the hospital with a prescription for the narcotic pain medication that worked best throughout your stay. * Aspirin Most patients will be required to take Aspirin 81mg twice a day for 6 weeks after surgery. This is obtained [id number] and a prescription is not necessary. * Other medications may be prescribed for specific circumstances. If you have any questions, please call the office at . * Resume previous home medications unless otherwise instructed TEDs/Elastic Stockings: The white elastic stockings help limit swelling and prevent blood clots from forming in your legs.~ The more you wear them, the more they work. Wear them for six weeks. Dressing Care: The dressing can be changed after physical therapy on postop day #1. Daily dry dressing changes for a few days, especially if the incision is still draining some. If the incision is not draining then you may leave the yasmine open to air. If there is a little bit of drainage or if the yasmine are getting stuck on your clothing then cover the incision with a dry dressing. The yasmine will be removed at your 2 week follow-up appointment. Showering: You may shower 5 days from the day of surgery as long as the incision is no longer draining. You may shower with the yasmine exposed. Let soapy water run over the yasmine and pat them dry. Do not scrub or soak the incision. Things To Watch For: * Drainage from the incision site that occurs more than one week after your surgery. * Increased redness at the incision site. * Fever above 102 degrees Fahrenheit. * Unusual chest pain or shortness of breath. * Call [facility] at with any of the above problems Follow-Up Visit: Follow-up with Dr. Maya's PA (Brian Swift) 2-3 weeks after your day of surgery. He will remove your yasmine and answer any questions. If you have any additional questions or concerns, Dr Maay is usually in the office at the same time and will be available An appointment was probably scheduled when you signed-up for surgery in the office. If you have any questions call Office Instructions: More detailed instructions as well as Frequently Asked Questions were provided in a folder by our office when you signed-up for surgery. Please review these instructions when you get home. If you have any further questions or concerns, please feel free to call the offi ce at [phone] Pending Studies at Discharge: No Stand-Alone Forms: My FIA Formula E, Smoking Cessation Medications and DC Order Prescriptions: New aspirin 81 mg Tablet,Delayed Release (Dr/Ec) 81 mg PO BID 42 Days Qty: 84 0RF Continued diclofenac sodium 1 % gel 2 g topical QID Rx Instructions: apply to single elbow, wrist or hand; for hand includes palm/fingers/back of hand (DME) 3-in-1 Commode Misc See Rx Instructions .MEDSUPPLY Qty: 1 0RF Rx Instructions: As directed calcium 600 mg Capsule 600 mg PO QAM cyanocobalamin (vitamin B-12) [Vitamin B-12] 1,000 mcg Tablet 1,000 mcg PO QAM lorazepam 0.5 mg Tablet 0.5 mg PO HS PRN (Reason: Anxiety) levothyroxine 125 mcg Tablet 125 mcg PO QAM ibuprofen 200 mg Tablet 200 mg PO QAM PRN (Reason: Pain) polyethylene glycol 3350 [Miralax] 17 gram/dose Powder 17 g PO DAILY PRN (Reason: Constipation) glucosamine-chondroitin [Osteo Bi-Flex] 250-200 mg Tablet 2 tab PO QAM cholecalciferol (vitamin D3) [Vitamin D3] 50 mcg (2,000 unit) Tablet 50 mcg PO QAM melatonin 5 mg Tablet 5 mg PO HS tramadol 50 mg tablet 50 mg PO Q6H PRN (Reason: pain) Qty: 30 0RF Discharge Orders: Discharge Order (Routine); Ordered 06/12/22 Ordered By: Brian Maya Admission Data Admit Date/Time: 06/11/22 11:59 Attending Provider: Brian Maya Admit Provider: Brian Maya Primary Care Provider: Alayna Geiger
[2022-06-12] MEDS ORDERED: dexAMETHasone 4 MG TAB PO SCH (08:00)
[2022-06-12] MEDS: ASPIRIN 81 MG ECTAB PO SCH (08:15)
[2022-06-12] MEDS: DOCUSATE SODIUM 100 MG CAP PO SCH (08:15)
[2022-06-12] MEDS ORDERED: MULTIVITAMIN TAB PO SCH (09:00)
== END 2022-06-12 14:44 | disposition home health service (06) ==
LOC: 3W 07:39 → ASU 07:39